=== PATIENT | female | born 1955 | race Caucasian/White ===

== ENCOUNTER 2017-05-18 15:46 | Outpatient (CLI) | payer OTHER | END 2017-05-18 15:55 | disposition home or self-care (01) | LOC: LAB 15:46 | DX: C56.2 Malignant neoplasm of left ovary (principal); D50.9 Iron deficiency anemia, unspecified; Z01.818 Encounter for other preprocedural examination; Z00.01 Encounter for general adult medical examination with abnormal findings; Z51.11 Encounter for antineoplastic chemotherapy ==